=== PATIENT | female | born 1985 | race Caucasian/White ===

== ENCOUNTER 2017-11-04 17:25 | Emergency (ER) | payer SELFPAY ==
[2017-11-04 18:11] VITALS: BMI 37.1
[2017-11-04] MEDS ORDERED: Sodium Chloride 0.9% 1,000 ML IV ONE ×2 (19:26→21:09)
--- NOTE | 2017-11-04 19:26 | C.PDOC ---
History Of Present Illness 32 year old female presents to the ED for evaluation of fever, chills that started on Thursday night. Patient is also complianing cough is productive with green sputum associated with SOB, dizziness and headache that started on Thursday. Patient denies vomit, diarrhea, abdominal pain, back pain, dysuria, hematuria, recent travel, sick contacts. Time Seen by Provider: 11/04/17 18:42 Chief Complaint (Nursing): Flu-like Symptoms History Per: Patient History/Exam Limitations: no limitations Onset/Duration Of Symptoms: Days Current Symptoms Are (Timing): Still Present Location Of Pain: Diffuse Myalgias, Headache Sick Contacts (Context): None Associated Symptoms: Fever, Chills, Cough, Sputum (green). denies: Nausea, Vomiting, Diarrhea Ear Symptoms: Bilateral: None Severity: None Recent travel outside of the [place]: No Additional History Per: Patient Past Medical History Reviewed: Historical Data, Nursing Documentation, Vital Signs Vital Signs: Last Vital Signs Temp 100 F H 11/04/17 23:07 Pulse 103 H 11/04/17 23:07 Resp 16 11/04/17 23:07 BP 102/64 11/04/17 23:07 Pulse Ox 99 11/04/17 23:07 - Medical History PMH: No Chronic Diseases Surgical History: No Surg Hx - [facility] Procedures OTHER SKIN & SUBQ I D (03/12/15) Family History: States: Unknown Family Hx - Social History Hx Tobacco Use: No Hx Alcohol Use: Yes Hx Substance Use: No - Immunization History Hx Tetanus Toxoid Vaccination: No Hx Influenza Vaccination: No Hx Pneumococcal Vaccination: No Review Of Systems Constitutional: Positive for: Fever, Chills. Negative for: Sweats, Weakness Eyes: Negative for: Pain ENT: Negative for: Ear Pain, Nose Congestion Cardiovascular: Negative for: Chest Pain, Palpitations Respiratory: Positive for: Cough, Shortness of Breath, Sputum (green). Negative for: SOB with Excertion, Pleuritic Pain Gastrointestinal: Positive for: Nausea. Negative for: Vomiting, Abdominal Pain , Diarrhea Genitourinary: Negative for: Dysuria, Hematuria Musculoskeletal: Negative for: Neck Pain Skin: Negative for: Rash Neurological: Positive for: Headache. Negative for: Weakness, Numbness Psych: Negative for: Anxiety Physical Exam - Physical Exam Appears: Non-toxic, No Acute Distress, In Acute Distress Skin: Normal Color, Warm, Dry Head: Atraumatic, Normacephalic Eye(s): bilateral: Normal Inspection Ear(s): Bilateral: Normal Nose: No Discharge, No Deformity Oral Mucosa: Moist Tongue: Normal Appearing Lips: Normal Appearing Teeth: Normal Dentition Gingiva: Normal Appearing Throat: Normal, No Erythema, No Exudate Neck: Normal ROM, Supple Chest: Symmetrical Cardiovascular: Rhythm Regular, No Murmur Respiratory: No Rales, No Rhonchi, No Wheezing, Other (B/L coarse breath sounds) Gastrointestinal/Abdominal: Normal Exam, Soft, No Tenderness, No Guarding, No Rebound Back: Normal Inspection Extremity: Normal ROM, No Pedal Edema, No Calf Tenderness, No Deformity, No Swelling Extremity: Bilateral: Atraumatic Neurological/Psych: Oriented x3, Normal Speech, Normal Cognition Gait: Steady ED Course And Treatment - Laboratory Results Result Diagrams: 11/04/17 20:02 11/04/17 20:02 O2 Sat by Pulse Oximetry: 97 (On RA) Pulse Ox Interpretation: Normal - Radiology CXR: Interpreted by Me CXR Interpretation: Yes: No Acute Disease. No: Infiltrates, Cardiomegaly, Pnemothorax Medical Decision Making Medical Decision Making: Plan: * EKG * Blood work * White count: 13.6 * AST 99 * ALT 168 * Phosphate 157 * CXR * Negative, no infiltrates, no effusion, no PMX, no cardiomegaly * Duoneb 6 ml INH * IV fluids * Patient got a second liter of fluids * Tylenol 975 mg PO * Zofran 4 mg IVP * Nebulizer treatment * Influenza A B test * Flu came back positive * UA pt given more duonebs with further improvement of her symptoms. Motrin for headache. return as needed. Disposition Counseled Patient/Family Regarding: Diagnosis - Disposition Referrals: [facility] [place]] [facility] at [facility] [Outside] [facility] at [place] [Outside] Disposition: HOME/ ROUTINE Disposition Time: 01:09 Condition: STABLE Additional Instructions: return if symptoms worsen Prescriptions: Albuterol HFA [Ventolin HFA 90 mcg/actuation (8 g)] 2 puff IH [id number] #1 unit Instructions: Influenza (ED), Acute Bronchitis (ED), Dyspnea (ED) Forms: [employer] (Puerto Rican) - Clinical Impression Clinical Impression: Influenza - Scribe Statement The provider has reviewed the documentation as recorded by the Scribe Vick Suero All medical record entries made by the Scribe were at my direction and personally dictated by me. I have reviewed the chart and agree that the record accurately reflects my personal performance of the history, physical exam, medical decision making, and the department course for this patient. I have also personally directed, reviewed, and agree with the discharge instructions and disposition.
[2017-11-04] MEDS ORDERED: Albuterol-Ipratrop 3 mg / 0.5 (3 ml) UD INH STA ×2 (19:28→21:36)
[2017-11-04] MEDS ORDERED: Albuterol-Ipratrop 3 mg / 0.5 (3 ml) UD ONE (20:08)
[2017-11-04 20:09] LABS: SQUAMOUS EPITHIAL 1 /hpf (0-5); URINE BILIRUBIN NEGATIVE (NEGATIVE); URINE BLOOD 3+ (NEGATIVE); URINE CLARITY Clear (Clear); URINE GLUCOSE (UA) NORMAL (Normal); URINE LEUKOCYTE ESTERASE NEG Leu/uL (Negative); URINE NITRATE NEGATIVE (NEGATIVE); URINE PROTEIN 1+ mg/dL (NEGATIVE)
[2017-11-04 20:10] LABS: BASO # 0.1 K/uL (0.0-0.2); BASO % 0.4 % (0.0-2.0); EOS # 0.1 K/uL (0.0-0.7); EOS % 0.8 % (0.0-4.0); HEMOGLOBIN 13.6 g/dL (11.0-16.0); LYMPH # 1.2 K/uL (1.0-4.3); LYMPH % 8.6 % (20.0-40.0); MEAN CORPUSCULAR HEMOGLOBIN 30.6 pg (27.0-31.0); MEAN CORPUSCULAR HGB CONC 33.8 g/dL (33.0-37.0); MEAN PLATELET VOLUME 8.6 fL (7.2-11.7); MONO # 1.2 K/uL (0.0-0.8); MONO % 8.9 % (0.0-10.0); NEUT # 11.1 K/uL (1.8-7.0); NEUT % 81.3 % (50.0-75.0); PLATELET COUNT 290 K/uL (130-400); RBC 4.45 Mil/uL (3.80-5.20); RED CELL DISTRIBUTION WIDTH 13.8 % (11.5-14.5); WHITE BLOOD COUNT 13.6 K/uL (4.8-10.8)
[2017-11-04 20:11] LABS: URINE COLOR YELLOW (YELLOW)
[2017-11-04 20:15] LABS: MEAN CELL VOLUME 90.5 fL (81.0-99.0)
[2017-11-04 20:21] LABS: ALBUMIN 4.3 g/dL (3.5-5.0); ALT/SGPT 168 U/L (9-52); AST/SGOT 99 U/L (14-36); BLOOD UREA NITROGEN 9 mg/dL (7-17); CALCIUM 8.3 mg/dl (8.6-10.4); GFR AFRICAN-AMERICAN > 60; GFR NON-AFRICAN AMERICAN > 60; MAGNESIUM 1.9 mg/dL (1.6-2.3)
[2017-11-04 20:40] LABS: BANDS 8 % (0-2); LYMPHOCYTE 11 % (20-40); MONOCYTE 7 % (0-10); NEUTROPHIL 74 % (50-75); PLATELET ESTIMATE NORMAL (NORMAL); TOTAL CELLS COUNTED 100
[2017-11-04 21:22] VITALS: RESP 16
[2017-11-04 23:07] VITALS: BP 102/64; PULSE 103; TEMP 100
--- NOTE | 2017-11-05 08:15 | RAD ---
HISTORY: SOB COMPARISON: Chest x-ray 01/20/2015 TECHNIQUE: Chest PA and lateral FINDINGS: LUNGS: No focal consolidation is seen. PLEURA: No pleural effusion is identified. CARDIOVASCULAR: Heart size is within normal limits. OSSEOUS STRUCTURES: No acute fracture identified. VISUALIZED UPPER ABDOMEN: Unremarkable. OTHER FINDINGS: None. IMPRESSION: No acute cardiopulmonary process seen.
--- NOTE | 2017-11-05 14:03 | CARD ---
APPROVED REPORT EKG Measurement Heart [id number] <Conclusion> Sinus tachycardia Otherwise normal ECG
[2017-11-06 01:09] VITALS: O2SAT 97
== END 2017-11-04 23:07 | disposition home or self-care (01) ==
LOC: C.ER 17:25
DX: J11.1 Influenza due to unidentified influenza virus with other respiratory manifestations (principal)
CPT/HCPCS: 71046; 80053; 81001; 83735; 85025; 87804; 93005; 96361; 96374; 99284; J2405; J7040

== ENCOUNTER 2018-05-10 14:07 | Emergency (ER) | payer SELFPAY ==
[2018-05-10 14:07] VITALS: BMI 37.1
[2018-05-10 15:03] VITALS: BP 104/69; PULSE 73; RESP 20; TEMP 99; O2SAT 100
--- NOTE | 2018-05-10 15:44 | C.PDOC ---
History Of Present Illness Pt c/o rash on left forearm. Time Seen by Provider: 05/10/18 15:14 Chief Complaint (Nursing): Abnormal Skin Integrity History Per: Patient Onset/Duration Of Symptoms: Days (1) Current Symptoms Are (Timing): Worse Location Of Injury: Left: Forearm Quality Of Symptoms: Itching, Swollen. denies: Painful, Draining Severity: Moderate Additional History Per: Prior Records Past Medical History Reviewed: Historical Data, Nursing Documentation, Vital Signs Vital Signs: Last Vital Signs Temp 99 F 05/10/18 14:59 Pulse 73 05/10/18 14:59 Resp 20 05/10/18 14:59 BP 104/69 05/10/18 14:59 Pulse Ox 100 05/10/18 14:59 - Medical History PMH: No Chronic Diseases - [facility] Procedures OTHER SKIN & SUBQ I D (03/12/15) Family History: States: Unknown Family Hx - Social History Hx Tobacco Use: No Hx Alcohol Use: Yes Hx Substance Use: No - Immunization History Hx Tetanus Toxoid Vaccination: No Hx Influenza Vaccination: No Hx Pneumococcal Vaccination: No Review Of Systems Except As Marked, All Systems Reviewed And Found Negative. Constitutional: Negative for: Fever, Weakness ENT: Negative for: Throat Pain Respiratory: Negative for: Shortness of Breath Musculoskeletal: Negative for: Arm Pain, Hand Pain Skin: Positive for: Rash Neurological: Negative for: Weakness, Numbness Physical Exam - Physical Exam Appears: Non-toxic, No Acute Distress Skin: Warm, Dry, Rash (lesion (likely insect bite) on left forearm surrounded by area of induration and mild erythema and warmth) Head: Atraumatic, Normacephalic Eye(s): bilateral: Normal Inspection, PERRL, EOMI Neck: Normal ROM, Supple Extremity: Normal ROM, No Tenderness, Capillary Refill (wnl) Pulses: Left Radial: Normal Neurological/Psych: Oriented x3, Normal Motor, Normal Sensation ED Course And Treatment O2 Sat by Pulse Oximetry: 100 Pulse Ox Interpretation: Normal Disposition Counseled Patient/Family Regarding: Diagnosis, Need For Followup, Rx Given - Disposition Referrals: [facility] [Outside] Disposition: HOME/ ROUTINE Disposition Time: 15:44 Condition: STABLE Additional Instructions: Follow up in the clinic. Return to the ER if you develop fever, drainage, worsening of symptoms or if you have any other concerns. Prescriptions: Cephalexin [cephalexin] 500 mg PO TID #21 cap DiphenhydrAMINE 1% [Benadryl Maximum Strength 1%] 1 applic TP TID #1 tube Instructions: Insect Bites and Stings (DC) - Clinical Impression Clinical Impression: Insect bite of left forearm with local reaction
== END 2018-05-10 15:55 | disposition home or self-care (01) ==
LOC: C.ER 14:07
DX: S50.862A Insect bite (nonvenomous) of left forearm, initial encounter (principal); W57.XXXA Bitten or stung by nonvenomous insect and other nonvenomous arthropods, initial encounter